=== PATIENT | male | born 1995 | race Hispanic/Latino ===

== ENCOUNTER 2019-05-30 07:49 | Day surgery (SDC) | payer OTHER, SELFPAY ==
[2019-05-30] MEDS ORDERED: Fentanyl 100 MCG/2 ML VIAL ONE (08:54)
[2019-05-30] MEDS ORDERED: Midazolam HCl 2 mg/2 ml Vial ONE (08:54)
[2019-05-30] MEDS ORDERED: Scopolamine 1.5 mg/72 hour Patch ONE (09:00)
[2019-05-30] MEDS ORDERED: Bupivacaine/Epinephrine 0.25% 30 ML VIAL ONE ×2 (09:12→10:05)
[2019-05-30] MEDS ORDERED: Ondansetron HCl/PF 4 MG/2 ML Vial IVP PRN (10:49)
[2019-05-30] MEDS ORDERED: Promethazine HCl 25 MG/ML VIAL IM PRN (10:49)
[2019-05-30] MEDS ORDERED: Promethazine HCl 25 MG/ML VIAL SLOW IVP PRN (10:49)
--- NOTE | 2019-05-30 12:34 | HP ---
CHIEF COMPLAINT: Abdominal pain. HISTORY OF PRESENT ILLNESS: Mr. Goddard is a 24-year-old man, who presented to a freestanding ER with severe abdominal pain. He states that this came on suddenly around 6 o'clock shortly after he ate dinner. It was in the central abdomen, but more on the right than the left. Since that time, it has migrated into the lower abdomen, it is still more on the right than the left. He says that he has some fevers and some nausea and vomiting, and evaluation at the ER showed evidence of acute appendicitis on CT. He was started on antibiotics, but is still hurting quite a bit. PAST MEDICAL HISTORY: None. PAST SURGICAL HISTORY: Hand surgery and wisdom teeth removal. He had significant postoperative nausea and vomiting with those procedures. FAMILY HISTORY: None. SOCIAL HISTORY: He does not smoke, drink, or use illicit drugs. REVIEW OF SYSTEMS: Ten-system review of systems is negative, except per HPI and a sore throat on Thursday. PHYSICAL EXAMINATION: VITAL SIGNS: Heart rate is 108, blood pressure and other vital signs are normal. GENERAL: Reveals a healthy-appearing young man, who grimaces with movement. He has a wet washrag on his forehead since he feels hot. HEENT: Unremarkable. NECK: Supple without lymphadenopathy or thyroid nodules. HEART: Regular, slightly tachycardic. No murmurs, rubs, or gallops. LUNGS: Clear to auscultation bilaterally with good air entry. ABDOMEN: Soft and non-distended. He indicates the point of greatest tenderness as just to the right of the lower midline. He is very tender to palpation in the right lower quadrant, moderately tender in the left lower quadrant and right upper quadrant. He does not exhibit rigidity or guarding, but he does have rebound tenderness in the right lower quadrant with release of pressure in the left lower quadrant. EXTREMITIES: Warm and well perfused without edema. NEURO: No focal deficits. PSYCHIATRIC: Alert, oriented, and appropriate. LABORATORY DATA: Labs from the outside ER showed an elevated white count, but were otherwise unremarkable. IMAGING STUDIES: CT showed a dilated fluid-filled appendix with an appendicolith consistent with acute appendicitis. No other abnormal findings were noted. ASSESSMENT: Acute appendicitis. PLAN: Laparoscopic appendectomy. The patient has received Zosyn at the outside ER with his last dose around 7 o'clock. The procedure of laparoscopic appendectomy was discussed with the patient and his family. Inherent risks were also discussed. These included, but are not limited to, bleeding, infection, risks of anesthesia, damage to nearby structures including bowel, blood vessels, and bladder, need for open surgery, need for other procedures. They understand and accept these risks and wished to proceed. Alternatives include treatment with antibiotics, but since he has not had any improvement in his pain and he has an appendicolith, I do not recommend this. All their questions were answered. Job ID: [id number]
[2019-05-30] MEDS ORDERED: Sodium Chloride 0.9% 100 ML ONE (12:40)
[2019-05-30] MEDS ORDERED: Piperacillin/Tazobactam 3.375 GM VIAL ONE (12:40)
[2019-05-30] MEDS ORDERED: HYDROcodone/Acetaminophen 5/325 mg Tablet ONE (13:08)
[2019-05-30] MEDS ORDERED: Ketorolac Tromethamine 30 MG/ML VIAL ONE (13:44)
[2019-05-30] MEDS ORDERED: Lidocaine 1% PF 5 ML VIAL ONE (13:44)
[2019-05-30] MEDS ORDERED: Succinylcholine Chloride 20 MG/ML 10 ml SYRINGE FS ONE (13:44)
[2019-05-30] MEDS ORDERED: PHENYLEPHRINE-NS 100 MCG/ML 10 ML SYRINGE ONE (13:44)
[2019-05-30] MEDS ORDERED: Ondansetron PF 4 MG/2 ML Vial ONE (13:44)
[2019-05-30] MEDS ORDERED: PROPOFOL 200 MG/20 ML VIAL ONE (13:44)
[2019-05-30] MEDS ORDERED: Rocuronium Bromide 10 MG/ML (10ML VIAL) ONE (13:44)
[2019-05-30] MEDS ORDERED: Glycopyrrolate 0.2 MG/ML 5 ML SYRINGE ONE (13:44)
[2019-05-30] MEDS ORDERED: Dexamethasone 20 MG/5 ML VIAL ONE (13:44)
--- NOTE | 2019-06-03 18:01 | PDOC.OP ---
Operative Note - Operative Note Operative Note: PROCEDURE: Laparoscopic appendectomy. SURGEON: Juliann Noriega M.D. DATE OF PROCEDURE: 05/30/2019 PREOPERATIVE DIAGNOSIS: Appendicitis. POSTOPERATIVE DIAGNOSIS: Appendicitis. HISTORY: Healthy 24-year-old man who presented with signs and symptoms concerning for appendicitis. CT scan showed evidence of acute appendicitis and recommendation was made to proceed with laparoscopic appendectomy. DESCRIPTION OF PROCEDURE: After informed consent was obtained and appropriate antibiotics continued, the patient was taken to the operating room and placed in the supine position and general endotracheal anesthesia was administered. The bladder was decompressed with a Keller catheter and the abdomen was prepped and draped in the standard sterile fashion. Local anesthesia was infused to the skin and subcutaneous tissues superior to the umbilicus. A transverse skin incision was made and a Veress needle placed into the abdominal cavity and carbon dioxide gas insufflated without difficulty. Opening pressure was less than 5. Carbon dioxide gas was insufflated to an intra-abdominal pressure 15 and the patient tolerated this well. The Veress needle was withdrawn and a Granville port advanced under direct laparoscopic vision into the abdominal cavity. Two additional ports were placed in the suprapubic and left lateral abdomen under direct laparoscopic vision after local anesthesia was infused at these sites. There were no significant adhesions. The appendix was identified and appeared inflamed but not perforated. The appendix was grasped by the mesoappendix and elevated. The mesoappendix was then sequentially ligated and divided down to the base of the appendix, which was normal in appearance and was clearly seen to be at the confluence of the tenia. Two Endoloops were placed around the base of the appendix and the appendix was divided between these Endoloops, placed into an EndoCatch bag and drawn out through the suprapubic incision. The suprapubic trocar was then replaced and the operative site was easily irrigated to clear. The suprapubic trocar was removed and the fascia closed under direct laparoscopic vision with a 0 Vicryl suture on a GraNee needle with excellent technical result. The left lateral trocar was then removed and hemostasis verified. Carbon dioxide gas was desufflated through the umbilical trocar which was then removed. The skin incisions were irrigated and additional local anesthesia infused at each site. The skin was closed with 4-0 subcuticular Monocryl sutures and Dermabond dressings were placed. The patient was extubated and taken to the recovery room in good condition. Estimated blood loss was minimal. There were no complications. SPECIMEN: Appendix.
== END 2019-05-30 14:00 | disposition home or self-care (01) ==
LOC: SDC 07:49
PROVIDERS: ATTEND Surgery
PROC: 0DTJ4ZZ Resection of Appendix, Percutaneous Endoscopic Approach (ICD-10-PCS; principal; 2019-05-30)
DX: K35.80 Unspecified acute appendicitis (principal)
CPT/HCPCS: 88304; J0131; J1100; J1885; J2001; J2250; J2405; J2543; J2704; J3010; J3490